=== PATIENT | female | born 1935 | race Caucasian/White ===

== ENCOUNTER 2016-08-16 09:11 | Day surgery (SDC) | payer MEDICARE, OTHER ==
[~2016-08-16 09:11] MED LIST: AMLO-39 PO; CIPR-198 PO; DIT5 PO; LEVO50TA83 PO; Lidocaine Topical 2% 30 mL Jelly ONE; OMEP40CA25 PO; SERT25TA2 PO; SIMV80TA PO
== END 2016-08-16 23:59 | disposition home or self-care (01) ==
LOC: END 09:11
PROVIDERS: ATTEND Internal Medicine Gastroenterology
DX: K21.9 Gastro-esophageal reflux disease without esophagitis (principal); R05 Cough; R49.0 Dysphonia